=== PATIENT | female | born 1960 | race Caucasian/White ===

== ENCOUNTER → 2016-03-30 16:05 | Outpatient (CLI) | payer OTHER ==
[2015-01-26 11:36] VITALS: BMI 35.8
[~2016-03-30 16:05] MED LIST: ADDERALL 10 MG10 MG PO; ADDERALL 15 MG15 MG PO; CYCLOBENZAPRINE10 MG PO; DEMEROL50 MG PO; FLEXERIL10 MG PO; LEVOTHYROXINE175 MCG PO; OXYCODONE HCL10 MG PO; OXYCODONE HCL5 MG PO; PERCOCET 10/3251 TA1 PO; PRILOSEC20 MG PO; SYNTHROID150 MCG PO; TRILEPTAL300 MG PO; ULTRAM50 MG PO; VIIBRYD PO
== END | disposition home or self-care (01) ==
LOC: D.MAMMO 03-29 11:00
DX: N63 Unspecified lump in breast (principal)

== ENCOUNTER 2016-04-23 15:03 | Emergency (ER) | payer OTHER ==
[2015-01-26 11:36] VITALS: BMI 35.8
[~2016-04-23 15:03] MED LIST changes: -OXYCODONE HCL10 MG PO; -OXYCODONE HCL5 MG PO; -PERCOCET 10/3251 TA1 PO
[2016-04-29] MEDS ORDERED: PERCOCET 10/3251 TA1 PO (10:45)
== END 2016-04-23 17:06 | disposition home or self-care (01) ==
LOC: D.ER 15:03
DX: S42.202A Unspecified fracture of upper end of left humerus, initial encounter for closed fracture (principal); V80.010A Animal-rider injured by fall from or being thrown from horse in noncollision accident, initial encounter; Y93.52 Activity, horseback riding; Y92.9 Unspecified place or not applicable

== ENCOUNTER 2016-05-02 05:34 | Inpatient (IN) | payer OTHER ==
[2016-04-29 11:57] LABS: APTT 27.3 SECONDS (22.8-39.4); CALC OSMOLALITY 264 mosm/kg (275-300); CALCIUM 8.8 mg/dL (8.5-10.1); CARBON DIOXIDE 34.8 mmol/L (21.0-32.0); CHLORIDE - SERUM 92 mmol/L (98-107); CREATININE - SERUM 0.7 mg/dL (0.6-1.3); GLUCOSE 97 mg/dL (74-106); INR 0.94 (0.85-1.17); POTASSIUM - SERUM 3.6 mmol/L (3.5-5.1); PROTIME 12.4 SECONDS (11.6-15.0); SODIUM 133 mmol/L (136-145); UREA NITROGEN 11 mg/dL (7-18); eGFR NON AFRICAN AMERICAN > 90 mL/min (90-120)
[2016-04-29 12:07] LABS: BASOPHILS 0.5 % (0.0-2.0); EOSINOPHILS 2.3 % (0-7); HEMATOCRIT 32.6 % (36.0-48.0); HEMOGLOBIN 10.8 g/dL (12-16); IMMATURE GRANULOCYTES 0.6 % (0-5); LYMPHOCYTES 19.9 % (15-50); MCHC 33.1 g/dL (31.0-37.0); MCV 90.6 fL (80.0-100.0); MEAN PLATELET VOLUME 9.2 fL (7.4-10.4); NEUTROPHILS 67.7 % (40-80); RDW 12.6 % (11.5-14.5); WBC 8.6 10x3/uL (4.8-10.8)
[2016-04-29 12:17] LABS: PLATELET COUNT 338 10x3/uL (130-400)
[2016-04-29 12:21] LABS: APPEARANCE CLEAR (CLEAR); BILIRUBIN NEGATIVE (NEGATIVE); COLOR YELLOW (YELLOW); GLUCOSE NEGATIVE (NEGATIVE); KETONE NEGATIVE (NEGATIVE); LEUKOCYTE ESTERASE TRACE (NEGATIVE); NITRITE NEGATIVE (NEGATIVE); PROTEIN NEGATIVE (NEGATIVE); UROBILINOGEN NORMAL (NORMAL); WHITE CELLS - URINE 0-5 /hpf (0-5)
[2016-04-29 12:22] LABS: BACTERIA FEW /hpf (NONE SEEN); EPITHELIAL CELLS 0-5 /hpf (0-5); MUCUS <1+ /lpf (NONE SEEN)
[2016-05-02] VITALS (9 sets, daily range): BP systolic 126–158; BP diastolic 73–93; BMI 37.8
[~2016-05-02] VITALS: Ht 162.6 cm; Wt 100.0 kg
[~2016-05-02 05:34] MED LIST changes: +PERCOCET 10/3251 TA1 PO
--- NOTE | 2016-05-02 13:09 | NUR ---
1306 DR PEREZ NOTIFIED OF PT.'S UA RESULTS WITH NEGATIVE FOR NITRATE BUT TRACE/LEUKOCYTES, FEW/BACTERIA, 1+/MUCUS. DR. PEREZ STATES IT IS OKAY. NO ORDERS RECEIVED. Martha LLANES R.N.
--- NOTE | 2016-05-02 14:09 | NUR ---
1330 PT STATES NO CHNAGES IN HEALTH ASSESSMENT SINCE INTERVIEWED 05/27/16. Martha LLANES R.N.
--- NOTE | 2016-05-02 18:40 | NUR ---
LEFT SHOULDER AND ARM WASHED WITH HIBICLENS AND ALCOHOL PRIOR TO CHLORPREP PER DN
--- NOTE | 2016-05-02 19:20 | NUR ---
RECIEVED SHIFT REPORT. PT IS LYING IN BED. ALERT AND ORIENTED AND ABLE TO VERBALIZE NEEDS. IV TO BOTH A/C'S PATENT AND SALINE LOC AT THIS TIME. PT IS AMBULATORY BUT WAS INSTRUCTED TO CALL FOR ANY ASSISTANCE NEEDED. PT STATES PAIN IS 8/10. NO NEEDS ARE VERBALIZED AT THIS TIME. WILL CONTINUE TO MONITOR. SIDE RAILS ARE UP X 2. BED IS IN LOWEST POSITION. CALL LIGHT IS WITHIN REACH.
--- NOTE | 2016-05-02 19:45 | NUR ---
RECIEVED PT TO FLOOR FROM RECOVERY ROOM. VSS. PT IS ALERT AND ORIENTED AND ABLE TO VERBALIZE NEEDS. O2 @ 2 PER NASAL CANNULA. DRESSING TO LEFT SHOULDER C/D/I AND IMMOBILIZER IN PLACE. BLOCK IN PLACE WITH DRESSING SITE C/D/I. PT PT DENIES ANY PAIN AT THIS TIME. PT IS ORIENTED TO ROOM AND USE OF CALL LIGHT AT THIS TIME. NO NEEDS ARE VERBALIZED AT THIS TIME. WILL CONTINUE TO MONITOR. SIDE RAILS ARE UP X 2. BED IS IN LOWEST POSITION. CALL LIGHT IS WITHIN REACH.
--- NOTE | 2016-05-02 21:04 | NUR ---
ADMIT ASSESSMENT COMPLETED. FLUIDS HUNG PER ORDER. PT REFUSES SCHEDULED OXYXONTIN AT THIS TIME. NO NEEDS ARE VOICED. WILL MONITOR. AT BEDSIDE. SIDE RAILS X 2. BED LOW. CALL LIGHT IN REACH.
[2016-05-03 00:30] VITALS: BP 139/80
[2016-05-03 01:14] VITALS: BP 150/89; Ht 162.6 cm; Wt 100.0 kg
[2016-05-03 01:30] VITALS: BP 127/80
[2016-05-03 04:00] VITALS: BP 135/62
--- NOTE | 2016-05-03 08:02 | NUR ---
PATIENT AWAKE, ALERT/ORIENT X4. RIGHT HAND PHERIAL LINE WITH 1.2 NORMAL SALINE RUNNING. SCDS' ON BILATERAL. CALL LIGHT WITHIN REACH. VOICES NO NEEDS
[2016-05-03 08:15] VITALS: BP 132/75
[2016-05-03] MEDS ORDERED: OXYCODONE HCL5 MG PO (08:19)
[2016-05-03] MEDS ORDERED: OXYCODONE HCL10 MG PO (08:24)
[2016-05-03 08:49] LABS: HEMOGLOBIN 9.6 g/dL (12-16); MCH 29.8 pg (26.0-34.0); MCHC 33.1 g/dL (31.0-37.0); MCV 90.1 fL (80.0-100.0); MEAN PLATELET VOLUME 8.7 fL (7.4-10.4); RBC 3.22 10x6/uL (4.00-5.40); RDW 12.9 % (11.5-14.5)
[2016-05-03 08:53] LABS: CALC OSMOLALITY 271 mosm/kg (275-300); CALCIUM 8.8 mg/dL (8.5-10.1); CARBON DIOXIDE 31.8 mmol/L (21.0-32.0); CHLORIDE - SERUM 101 mmol/L (98-107); CREATININE - SERUM 0.6 mg/dL (0.6-1.3); GLUCOSE 104 mg/dL (74-106); POTASSIUM - SERUM 3.9 mmol/L (3.5-5.1); SODIUM 137 mmol/L (136-145); UREA NITROGEN 7 mg/dL (7-18); eGFR NON AFRICAN AMERICAN > 90 mL/min (90-120)
--- NOTE | 2016-05-03 10:41 | NUR ---
DR PEREZ INTO SEE PATIENT. NEW ORDERS RECEIVED. PATIENT TO BE DISCHARGED TODAY
--- NOTE | 2016-05-03 11:13 | NUR ---
THIS NURSE WENT INTO TALK WITH PATIENT. STATED THAT ANETHESIOLOGIST WOULD BE UP TO PULL BLOCK. PATIENT STATED THAT SHE DOES NOT FEEL READY FOR BLOCK TO BE REMOVED. SHE HAS BEEN ON OXYCODONE 10MG AT HOME ALREADY AND DOESN'T FEEL SHE CAN CONTROL HER PAIN AT HOME. THIS NURS WAITING FOR ANETHESIA TO COME TALK WITH PATIENT
--- NOTE | 2016-05-03 11:25 | NUR ---
IMMOBILIZER SLING TO LEFT ARM. BLOCK PATENT AND PRESENT. PAIN 6/10 IN LEFT SHOULDER. SCD'S ON AND IN WORKING ORDER. ALERT AND ORIENTED X4 WITH RESPIRATIONS EVEN AND NON LABORED. DENIES NEEDS AT PRESENT TIME. CALL LIGHT IN REACH, WILL CONTINUE WITH PLAN OF CARE.
[2016-05-03 12:30] VITALS: BP 109/62
--- NOTE | 2016-05-03 13:11 | NUR ---
ANETHESIA HERE TO D/C BLOCK. PERIPHERAL LINE REMOVED FROM RIGHT HAND.
--- NOTE | 2016-05-03 13:20 | NUR ---
PATIENT DISCHARGE INSTRUCTION GIVEN TO PATIENT AND . MEDICATIONS PATIENT DOES NOT HAVE CALLED INTO PATIENTS PHARMACY. SCRIPS GIVEN TO PATIENT
--- NOTE | 2016-05-03 13:20 | NUR ---
DR. SIMMONS INTO SEE PATIENT.
--- NOTE | 2016-05-03 13:34 | NUR ---
IN WITH PATIENT. PATIENT TAKEN OUT TO CAR IN WHEELCHAIR.
--- NOTE | 2016-05-07 10:48 | OP ---
PATIENT NAME: ROMAIN DOWLEL MEDICAL RECORD: [id number] :58 LOCATION:[facility] ADMISSION DATE:05/02/16 SURGEON: OSIRIS PEREZ MD DATE OF OPERATION: 05/02/2016 Orthopedic Surgery Operative Note PREOPERATIVE DIAGNOSIS: A 3-part proximal humerus fracture. POSTOPERATIVE DIAGNOSIS: A 3-part proximal humerus fracture plus bony Bankart deficit. PROCEDURE: Left total shoulder arthroplasty. SURGEON: Osiris Perez MD ANESTHESIA: General. INTRAOPERATIVE COMPLICATIONS: None. SUMMARY OF PATHOLOGIC FINDINGS: The patient's tuberosities were split and the humeral head was in the inferior and posterior recess. The glenoid itself had a small bony Bankart deficit with deformation of the glenoid surface. Decision was made to proceed with the total shoulder arthroplasty given the above findings. IMPLANTS USED: Tornier fracture stem size 6.5, size 44 glenoid and a 46 humeral head. OPERATIVE SUMMARY IN DETAIL: After obtaining the appropriate preoperative orthopedic surgery consent as well as anesthetic consultation, evaluation and clearance, the patient was brought to operating room and placed on operating table in supine position. After adequate general laryngeal mask anesthesia was administered, she was placed in beach chair position. All pressure points were well padded. She was held firmly to the operating room table using the vacuum pack suction system. Left upper extremity and shoulder were then prepped and draped in a routine sterile fashion. The arm was held in Trimano arm holding device. Deltopectoral incision was taken down past the cephalic vein, which was protected throughout the case. The conjoined tendon was retracted gently medially. At this point, the fracture was identified. The tuberosities were controlled with #2 Ethibond and the humeral head was removed from its position. Multiple bone fragments were washed out and attention was turned to the glenoid. Circumferential labrectomy was performed. The patient's biceps tendon was already torn at the time of this dissection. The labrectomy was followed by reaming for the size 44 super pegged glenoid. After copious irrigation, the super pegged glenoid was cemented into place. All excess cement was removed. After this was allowed to harden, attention was turned to the humerus. The humerus was amenable only to the size 6.5 Tornier fracture stem. After trials were undertaken, the humeral head was used for graft. It was packed back of the stem. The cement restrictor was put into place. Cement was mixed on the back field. The cement was placed into the diaphyseal canal. After the cement was allowed to harden with the humeral head at the appropriate height and 30 degrees of retroversion, the tuberosities were brought around and it seemed that they would fit just fine. The remainder of the graft from the humeral head was packed in around the metaphyseal portion of the stem and then the tuberosities OPERATIVE REPORT [id number] ROMAIN DOWELL were reapproximated with #2 FiberTape in a transosseous fashion to the humerus itself, side to side, and then to the humerus itself to assure the lateral stability. The wound was copiously irrigated and closed with #1 Vicryl. This was followed by skin antonino. Sterile dressings were applied. The patient was awakened, placed in an abduction immobilizer splint. She was taken to the recovery room in stable condition. All final needle and sponge counts were correct. TRANSINT:[id number] Voice Confirmation ID: [id number] DOCUMENT ID: [id number] ANA WEINSTEIN, OSIRIS PAINTER at 1048 CC: [id number] DICTATION DATE: 05/02/161906 AIRPORT OPERATIONS OFFICER: 05/02/16 2257 DIS IN 05/03/16 [place] [id number] [place] [address]
== END 2016-05-03 13:47 | disposition home or self-care (01) | DRG 483 ==
LOC: D.OPS 05:34 → D.PAN 15:00 → D.MS 19:16 → D.OPS 19:17 → D.MS 05-03 13:47
PROVIDERS: ADMIT Orthopaedic Surgery
PROC: 0RRK0JZ Replacement of Left Shoulder Joint with Synthetic Substitute, Open Approach (ICD-10-PCS; principal; 2016-05-02 13:50)
DX: S42.232A 3-part fracture of surgical neck of left humerus, initial encounter for closed fracture (principal); X58.XXXA Exposure to other specified factors, initial encounter; K21.9 Gastro-esophageal reflux disease without esophagitis; G47.30 Sleep apnea, unspecified; E66.9 Obesity, unspecified; Z68.37 Body mass index [BMI] 37.0-37.9, adult

== ENCOUNTER → 2016-07-04 10:54 | Outpatient (CLI) | payer OTHER ==
[~2016-07-04 10:54] MED LIST changes: +OXYCODONE HCL10 MG PO; +OXYCODONE HCL5 MG PO
== END | disposition home or self-care (01) ==
LOC: D.US 10:54
DX: N63 Unspecified lump in breast (principal)

== ENCOUNTER → 2017-02-02 12:23 | Outpatient (CLI) | payer OTHER ==
[2016-05-03 01:14] VITALS: BMI 37.8
== END | disposition home or self-care (01) ==
LOC: D.MAMMO 10:30
DX: Z12.31 Encounter for screening mammogram for malignant neoplasm of breast (principal)

== ENCOUNTER 2017-09-08 12:11 | Inpatient (IN) | payer OTHER ==
[~2017-09-08] VITALS: Ht 162.6 cm; Wt 109.1 kg
--- NOTE | ~2017-09-08 | OP ---
PATIENT NAME: ROMAIN DOWELL MEDICAL RECORD: [id number] :58 LOCATION:[facility] ADMISSION DATE:09/08/17 SURGEON: OSIRIS PEREZ MD DATE OF OPERATION: 09/09/2017 PREOPERATIVE DIAGNOSIS: Infected left total shoulder arthroplasty. POSTOPERATIVE DIAGNOSIS: Infected left total shoulder arthroplasty. PROCEDURE: 1. Resection of the infected left total shoulder arthroplasty. 2. Placement of antibiotic bone cement. SURGEON: Osiris Perez MD ANESTHESIA: General. INTRAOPERATIVE COMPLICATIONS: None. SUMMARY OF PATHOLOGIC FINDINGS: Upon incising the capsule, the patient had substantial cloudy material consistent with preoperative diagnosis. INDICATION: Ms. Dowell is a 56-year-old female who underwent total shoulder arthroplasty after severe 4-part intra-articular fracture dislocation of her left shoulder. This index procedure was approximately 19 months ago. All was well until approximately 2 weeks ago when she began to have increasing in pain, no history of infection with any other body site was noted. She was sent for CT arthrogram. At the time of CT arthrogram, she was found to have concerning for that was sent by the radiologist at an outside facility. Subsequently, that grew Staphylococcus aureus. She was admitted for pain relief and surgical intervention with IV antibiotics to follow. OPERATIVE SUMMARY IN DETAIL: After obtaining the appropriate preoperative orthopedic surgery consent as well as anesthetic consultation, evaluation and clearance, the patient was brought to the operating room on the operating table in supine position. After general laryngeal mask administered, the patient was placed in the beach chair position. All pressure points were well padded. She was held firmly to the operating room using the vacuum pack suction system. Left upper extremity and shoulder were then prepped and draped in routine sterile fashion. Deltopectoral incision was created over the previous incision, taken down the level of the deltopectoral interval. Cephalic vein was identified and protected to the residual of the case. Dissection was then carried down further, meticulous dissection of the deltoid off the rotator cuff was followed by meticulous dissection of the conjoined tendon. There was substantial amount of scar tissue. Subscapularis was then incised and the cultures were taken from the intra-articular aspect. After substantial dissection, the shoulder was then gently dislocated into the incision and it was removed rather easily likely further indicating infection. Having completed this, the glenoid likewise was removed further easily. All cement was removed. Wound was copiously irrigated on multiple occasions, curettage and rongeurs as well as scalpel were utilized to remove any nonviable appearing tissue. The cement spacer was made on the back field with bone cement laden with a gram of vancomycin. After this was allowed to harden, it was formed into a ball. This was then placed in the glenohumeral area as a spacer for later operative intervention. The wound was again irrigated and closed with #1 Vicryl, 2-0 OPERATIVE REPORT [id number] ROMAIN DOWELL Vicryl, and skin antonino. Sterile dressings were applied. The patient was awakened and was taken to recovery room in stable condition. All final needle and sponge counts were correct. TRANSINT:[id number] Voice Confirmation ID: [id number] DOCUMENT ID: [id number] ANA WEINSTEIN, OSIRIS PAINTER at 1123 CC: [id number] DICTATION DATE: 09/09/17 1025 E/M ENGINEER: 09/09/17 1048 ADM IN [facility] [address] [place] [address]
[2017-09-08] MEDS ORDERED: DILAUDID2 MG PO (13:29)
[2017-09-08] MEDS ORDERED: PREMARIN45 GM VG (13:31)
[2017-09-08 13:43] VITALS: BP 147/71; BMI 41.3
[2017-09-08 14:02] LABS: BASOPHILS 0.2 % (0-2); HEMATOCRIT 28.9 % (36.0-48.0); HEMOGLOBIN 9.7 g/dL (12-16); IMMATURE GRANULOCYTES 0.3 % (0-5); LYMPHOCYTES 14.9 % (15-50); MCH 28.7 pg (26.0-34.0); MCHC 33.6 g/dL (31.0-37.0); MCV 85.5 fL (80.0-100.0); MEAN PLATELET VOLUME 8.6 fL (7.4-10.4); MONOCYTES 10.5 % (2-11); NEUTROPHILS 73.1 % (40-80); RBC 3.38 10x6/uL (4.00-5.40); RDW 12.7 % (11.5-14.5); WBC 8.7 10x3/uL (4.8-10.8)
[2017-09-08 14:06] LABS: PLATELET COUNT 402 10x3/uL (130-400)
[2017-09-08 14:18] LABS: C-REACTIVE PROTEIN 8.7 mg/dL (0.0-0.9); CALC OSMOLALITY 267 mosm/kg (275-300); CALCIUM 8.7 mg/dL (8.5-10.1); CARBON DIOXIDE 31.7 mmol/L (21.0-32.0); CHLORIDE - SERUM 97 mmol/L (98-107); CREATININE - SERUM 0.8 mg/dL (0.6-1.3); GLUCOSE 124 mg/dL (74-106); SODIUM 134 mmol/L (136-145); UREA NITROGEN 10 mg/dL (7-18); eGFR NON AFRICAN AMERICAN 78 mL/min (90-120)
[2017-09-08 15:11] LABS: ERYTHROCYTE SEDIMENTATION RATE 115 mm/hr (0-30)
[2017-09-08 16:46] VITALS: BP 143/73
[2017-09-08 20:00] VITALS: BP 149/72
[2017-09-09] VITALS: BP 137/70
[2017-09-09 04:00] VITALS: BP 143/68
[2017-09-09 06:37] LABS: HEMATOCRIT 29.3 % (36.0-48.0); HEMOGLOBIN 9.7 g/dL (12-16); MCH 28.5 pg (26.0-34.0); MCHC 33.1 g/dL (31.0-37.0); MCV 86.2 fL (80.0-100.0); MEAN PLATELET VOLUME 8.6 fL (7.4-10.4); RBC 3.4 10x6/uL (4.00-5.40); RDW 12.9 % (11.5-14.5); WBC 6.7 10x3/uL (4.8-10.8)
[2017-09-09 06:53] LABS: CALC OSMOLALITY 269 mosm/kg (275-300); CALCIUM 8.6 mg/dL (8.5-10.1); CARBON DIOXIDE 30.6 mmol/L (21.0-32.0); CHLORIDE - SERUM 99 mmol/L (98-107); CREATININE - SERUM 0.8 mg/dL (0.6-1.3); GLUCOSE 96 mg/dL (74-106); POTASSIUM - SERUM 3.9 mmol/L (3.5-5.1); SODIUM 136 mmol/L (136-145); eGFR NON AFRICAN AMERICAN 78 mL/min (90-120)
[2017-09-09 07:05] LABS: UREA NITROGEN 6 mg/dL (7-18)
[2017-09-09 11:12] VITALS: BP 150/79
[2017-09-09 20:00] VITALS: BP 143/57
[2017-09-10] VITALS: BP 155/71
[2017-09-10 02:16] LABS: BASOPHILS 0.2 % (0-2); EOSINOPHILS 0.2 % (0-7); HEMATOCRIT 31.7 % (36.0-48.0); HEMOGLOBIN 10.5 g/dL (12-16); IMMATURE GRANULOCYTES 0.2 % (0-5); LYMPHOCYTES 9.8 % (15-50); MCH 28.6 pg (26.0-34.0); MCHC 33.1 g/dL (31.0-37.0); MCV 86.4 fL (80.0-100.0); MEAN PLATELET VOLUME 8.9 fL (7.4-10.4); MONOCYTES 9.9 % (2-11); NEUTROPHILS 79.7 % (40-80); PLATELET COUNT 463 10x3/uL (130-400); RBC 3.67 10x6/uL (4.00-5.40); RDW 12.9 % (11.5-14.5)
[2017-09-10 02:17] LABS: WBC 12.5 10x3/uL (4.8-10.8)
[2017-09-10 02:21] LABS: ALBUMIN 2.3 g/dL (3.4-5.0); ANION GAP 9.4 mmol/L (8-16); BILIRUBIN - TOTAL 0.43 mg/dL (0.2-1.3); C-REACTIVE PROTEIN 12.1 mg/dL (0.0-0.9); CALCIUM 8.4 mg/dL (8.5-10.1); CARBON DIOXIDE 29.6 mmol/L (21.0-32.0); CREATININE - SERUM 0.9 mg/dL (0.6-1.3); PROTEIN - SERUM 7.4 g/dL (6.4-8.2)
[2017-09-10 03:10] LABS: ERYTHROCYTE SEDIMENTATION RATE 68 mm/hr (0-30)
[2017-09-10 04:00] VITALS: BP 135/71
[2017-09-10 08:43] VITALS: BP 130/52
[2017-09-10 11:38] VITALS: BP 149/75
[2017-09-10 15:42] VITALS: BP 138/76
[2017-09-10 20:13] VITALS: BP 122/67
[2017-09-11] VITALS: BP 121/81
[2017-09-11 04:00] VITALS: BP 110/69
[2017-09-11 05:22] LABS: HEMATOCRIT 26.5 % (36.0-48.0); HEMOGLOBIN 8.7 g/dL (12-16); MCH 28.4 pg (26.0-34.0); MCHC 32.8 g/dL (31.0-37.0); MCV 86.6 fL (80.0-100.0); MEAN PLATELET VOLUME 8.6 fL (7.4-10.4); RBC 3.06 10x6/uL (4.00-5.40); RDW 13.2 % (11.5-14.5); WBC 9.8 10x3/uL (4.8-10.8)
[2017-09-11 05:42] LABS: CALC OSMOLALITY 267 mosm/kg (275-300); CALCIUM 8.4 mg/dL (8.5-10.1); CARBON DIOXIDE 33.4 mmol/L (21.0-32.0); CHLORIDE - SERUM 98 mmol/L (98-107); CREATININE - SERUM 0.8 mg/dL (0.6-1.3); GLUCOSE 119 mg/dL (74-106); POTASSIUM - SERUM 4.2 mmol/L (3.5-5.1); SODIUM 135 mmol/L (136-145); UREA NITROGEN 5 mg/dL (7-18); eGFR NON AFRICAN AMERICAN 78 mL/min (90-120)
[2017-09-11 08:25] VITALS: BP 126/64
[2017-09-11 11:49] VITALS: BP 118/64
[2017-09-11 13:07] VITALS: Ht 162.6 cm; Wt 109.1 kg
[2017-09-11 16:43] VITALS: BP 104/56
[2017-09-11 20:00] VITALS: BP 106/61
[2017-09-12 00:08] VITALS: BP 118/67
[2017-09-12 04:00] VITALS: BP 138/78
[2017-09-12 08:11] VITALS: BP 123/79
[2017-09-12] MEDS ORDERED: DILAUDID2 MG PO (08:44)
[2017-09-12 13:04] VITALS: BP 124/77
== END 2017-09-12 14:55 | disposition home health service (06) | DRG 496 ==
LOC: D.MS 12:11
PROVIDERS: Orthopaedic Surgery
PROC: 0RHK08Z Insertion of Spacer into Left Shoulder Joint, Open Approach (ICD-10-PCS; 2017-09-09)
PROC: 0RPK0JZ Removal of Synthetic Substitute from Left Shoulder Joint, Open Approach (ICD-10-PCS; principal; 2017-09-09 08:00)
PROC: 02HV33Z Insertion of Infusion Device into Superior Vena Cava, Percutaneous Approach (ICD-10-PCS; 2017-09-11)
PROC: B548ZZA Ultrasonography of Superior Vena Cava, Guidance (ICD-10-PCS; 2017-09-11)
DX: T84.59XA Infection and inflammatory reaction due to other internal joint prosthesis, initial encounter (principal); Z68.41 Body mass index [BMI] 40.0-44.9, adult; E03.9 Hypothyroidism, unspecified; M79.7 Fibromyalgia; E66.9 Obesity, unspecified

== ENCOUNTER → 2017-09-18 14:00 | Outpatient (CLI) | payer OTHER ==
[2017-09-11 13:07] VITALS: BMI 41.3
[~2017-09-18 14:00] MED LIST changes: +DILAUDID2 MG PO; +PREMARIN45 GM VG
[2017-09-18 14:47] LABS: BASOPHILS 0.5 % (0-2); EOSINOPHILS 3.2 % (0-7); HEMATOCRIT 28.9 % (36.0-48.0); HEMOGLOBIN 9.1 g/dL (12-16); IMMATURE GRANULOCYTES 0.9 % (0-5); LYMPHOCYTES 25.5 % (15-50); MCH 27.7 pg (26.0-34.0); MCHC 31.5 g/dL (31.0-37.0); MCV 88.1 fL (80.0-100.0); MONOCYTES 8.3 % (2-11); NEUTROPHILS 61.6 % (40-80); PLATELET COUNT 386 10x3/uL (130-400); RBC 3.28 10x6/uL (4.00-5.40); RDW 13.3 % (11.5-14.5); WBC 5.9 10x3/uL (4.8-10.8)
[2017-09-18 15:04] LABS: C-REACTIVE PROTEIN 2.9 mg/dL (0.0-0.9); CREATININE - SERUM 0.7 mg/dL (0.6-1.3)
[2017-09-18 18:16] LABS: ERYTHROCYTE SEDIMENTATION RATE 65 mm/hr (0-30)
== END | disposition home or self-care (01) ==
LOC: D.LABREF 14:00
PROVIDERS: Orthopaedic Surgery
DX: M00.811 Arthritis due to other bacteria, right shoulder (principal)

== ENCOUNTER → 2017-09-25 14:38 | Outpatient (CLI) | payer OTHER ==
[2017-09-11 13:07] VITALS: BMI 41.3
[~2017-09-25 14:38] MED LIST changes: +DILAUDID4 MG PO; +LUNESTA2 M1 PO
[2017-09-25 14:59] LABS: BASOPHILS 0.7 % (0-2); EOSINOPHILS 1.3 % (0-7); HEMATOCRIT 31.1 % (36.0-48.0); IMMATURE GRANULOCYTES 0.2 % (0-5); LYMPHOCYTES 23.6 % (15-50); MCH 27.9 pg (26.0-34.0); MCHC 32.2 g/dL (31.0-37.0); MCV 86.6 fL (80.0-100.0); MEAN PLATELET VOLUME 9.3 fL (7.4-10.4); MONOCYTES 6.8 % (2-11); NEUTROPHILS 67.4 % (40-80); RBC 3.59 10x6/uL (4.00-5.40); RDW 13.1 % (11.5-14.5)
[2017-09-25 15:04] LABS: PLATELET COUNT 294 10x3/uL (130-400)
[2017-09-25 15:21] LABS: C-REACTIVE PROTEIN 1.2 mg/dL (0.0-0.9); CREATININE - SERUM 0.7 mg/dL (0.6-1.3)
[2017-09-25 16:02] LABS: ERYTHROCYTE SEDIMENTATION RATE 65 mm/hr (0-30)
== END | disposition home or self-care (01) ==
LOC: D.LAB 14:38
PROVIDERS: Orthopaedic Surgery
DX: M00.811 Arthritis due to other bacteria, right shoulder (principal)

== ENCOUNTER → 2017-10-02 17:36 | Outpatient (CLI) | payer OTHER ==
[2017-09-11 13:07] VITALS: BMI 41.3
[2017-10-02 18:22] LABS: BASOPHILS 0.5 % (0-2); HEMATOCRIT 33.4 % (36.0-48.0); HEMOGLOBIN 10.8 g/dL (12-16); IMMATURE GRANULOCYTES 0.2 % (0-5); LYMPHOCYTES 26.1 % (15-50); MCH 27.9 pg (26.0-34.0); MCHC 32.3 g/dL (31.0-37.0); MCV 86.3 fL (80.0-100.0); MEAN PLATELET VOLUME 9.8 fL (7.4-10.4); MONOCYTES 8.7 % (2-11); NEUTROPHILS 62.5 % (40-80); PLATELET COUNT 289 10x3/uL (130-400); RBC 3.87 10x6/uL (4.00-5.40); WBC 6.6 10x3/uL (4.8-10.8)
[2017-10-02 19:08] LABS: C-REACTIVE PROTEIN 1.2 mg/dL (0.0-0.9); CREATININE - SERUM 0.8 mg/dL (0.6-1.3)
[2017-10-02 19:40] LABS: ERYTHROCYTE SEDIMENTATION RATE 70 mm/hr (0-30)
== END | disposition home or self-care (01) ==
LOC: D.LABREF 17:36
PROVIDERS: Orthopaedic Surgery
DX: M00.811 Arthritis due to other bacteria, right shoulder (principal); T84.59XA Infection and inflammatory reaction due to other internal joint prosthesis, initial encounter

== ENCOUNTER → 2017-10-09 18:46 | Outpatient (CLI) | payer OTHER ==
[2017-09-11 13:07] VITALS: BMI 41.3
[2017-10-09 20:10] LABS: HEMATOCRIT 35.5 % (36.0-48.0); HEMOGLOBIN 11.5 g/dL (12-16); MCH 27.8 pg (26.0-34.0); MCHC 32.4 g/dL (31.0-37.0); PLATELET COUNT 266 10x3/uL (130-400); RBC 4.13 10x6/uL (4.00-5.40); WBC 5.1 10x3/uL (4.8-10.8)
[2017-10-09 20:28] LABS: C-REACTIVE PROTEIN 0.7 mg/dL (0.0-0.9); CREATININE - SERUM 0.8 mg/dL (0.6-1.3)
[2017-10-09 21:10] LABS: ERYTHROCYTE SEDIMENTATION RATE 36 mm/hr (0-30)
[2017-10-09 21:28] LABS: EOSINOPHILS 4 % (0-7); LYMPHOCYTES 32 % (15-50); MONOCYTES 6 % (2-11); NEUTROPHILS 58 % (40-80)
[2017-10-09 21:29] LABS: PLATELET ESTIMATE NORMAL
== END | disposition home or self-care (01) ==
LOC: D.LABREF 18:46
PROVIDERS: Orthopaedic Surgery
DX: M00.811 Arthritis due to other bacteria, right shoulder (principal); T84.59XA Infection and inflammatory reaction due to other internal joint prosthesis, initial encounter

== ENCOUNTER 2017-11-06 05:20 | Inpatient (IN) | payer OTHER ==
[2017-11-02 14:47] LABS: HEMATOCRIT 40.9 % (36.0-48.0); HEMOGLOBIN 13.8 g/dL (12-16); MCH 28.4 pg (26.0-34.0); MCHC 33.7 g/dL (31.0-37.0); MCV 84.2 fL (80.0-100.0); MEAN PLATELET VOLUME 9.5 fL (7.4-10.4); RBC 4.86 10x6/uL (4.00-5.40)
[2017-11-02 15:03] LABS: ALBUMIN 3.5 g/dL (3.4-5.0); ANION GAP 9.8 mmol/L (8-16); BILIRUBIN - TOTAL 0.21 mg/dL (0.2-1.3); CALCIUM 8.9 mg/dL (8.5-10.1); CARBON DIOXIDE 32.4 mmol/L (21.0-32.0); CREATININE - SERUM 0.9 mg/dL (0.6-1.3); POTASSIUM - SERUM 4.2 mmol/L (3.5-5.1); PROTEIN - SERUM 8.2 g/dL (6.4-8.2)
[~2017-11-06] VITALS: Ht 162.6 cm; Wt 98.2 kg
--- NOTE | ~2017-11-06 | OP ---
PATIENT NAME: ROMAIN DOWELL MEDICAL RECORD: [id number] :58 LOCATION:D[facility] ADMISSION DATE:11/06/17 SURGEON: OSIRIS PEREZ MD DATE OF OPERATION: 11/06/2017 PREOPERATIVE DIAGNOSIS: Prior infected left total shoulder. POSTOPERATIVE DIAGNOSIS: Prior infected left total shoulder. PROCEDURES: 1. Revision, left total shoulder arthroplasty - reverse. 2. Removal of previously placed antibiotic cement spacer. SURGEON: Osiris Perez MD ANESTHESIA: General. INTRAOPERATIVE COMPLICATIONS: None. SUMMARY OF PATHOLOGIC FINDINGS: The patient had paucity of any rotator cuff left after she had had a hemiarthroplasty/total shoulder arthroplasty for fracture dislocation of the shoulder. She presented a year later with infection that was treated successfully, presents for reimplantation. IMPLANTS USED: Tornier reverse total shoulder arthroplasty, size 2 Flex long cemented stem, 25-mm baseplate, 36+4 glenosphere, and a size 6 polyethylene insert. OPERATIVE SUMMARY IN DETAIL: After obtaining the appropriate preoperative orthopaedic surgery consent as well as anesthetic consultation, evaluation, and clearance, the patient was brought to the operating room and placed on the operating table in the supine position. After adequate general endotracheal anesthesia was administered, the patient was placed in beachchair position. All pressure points were well padded. She was held firmly to the operating table using the vacuum pack suction system. The left upper extremity was then prepped and draped in routine sterile fashion. The arm was held in the Trimano arm holding device. Previously utilized incision was taken down for deltopectoral approach. Branches of the small cephalic vein were encountered and they were ligated with medium Hemoclips. Deltopectoral interval was developed through all the scar tissue and eventually the deltoid was taken off the proximal aspect of the humerus and mobilized as was the conjoined tendon medially. Arthrotomy was performed and the cement spacer was identified and removed. After removal of the cement spacer, substantial amounts of scar tissue was removed anteriorly and posteriorly as well as inferior recess. The patient did have excessive bleeding during the case with total of 500 cc of blood loss. All bleeders were coagulated as they were encountered. The glenoid was first approached and cleaned of all the scar tissue, and before making final determination of reverse versus primary, the humerus was approached. Proximal humerus had substantial amount of greater tuberosity bone loss with no good conductivity of the rotator cuff; therefore, the reverse was scheduled for. Any remaining cement was further removed from the proximal humerus. Serial and sequential reaming and broaching were done. I opted for a cemented stem rather than a stem because so much diaphyseal bone loss was noted. After the trial was put into place, it was then removed and attention was returned to the glenoid. The centralizing pin was placed in the glenoid and serial and sequential reaming were done along with OPERATIVE REPORT [id number] ROMAIN DOWELL peripheral reaming for a size #15 baseplate. The size #15 baseplate was put in with inferior angulation of approximately 15 degrees. Long stem post was used and good capture was achieved with 3 of the 4 screws around the periphery. At this point, the +4 glenosphere was then tamped into place with good locking on the Shah taper. Central screw was then deployed. Having completed this, attention was returned to the proximal humerus. Trial was put in place and taken through range of motion with the above-mentioned implants and thought to be stable. The trial was removed. Copious irrigation was followed by insertion of the cement plug. The size 2 long Flex stem was cemented into place with the metaphyseal component and polyethylene in place. This was tamped into place and held in place where the cement was allowed to dry. Before such, all excess cement was removed. When the cement was allowed to dry, the shoulder was relocated and taken through range of motion. No liftoff was seen anteriorly, posteriorly, or superiorly. The shoulder was very stable in all planes. Copious irrigation was then followed by closure of the shoulder capsule as well as the deltopectoral interval. Lastly, #1 Vicryl was then followed by skin antonino for final closure. Having completed this, sterile dressings were applied. The patient was awakened, extubated, and taken to recovery in stable condition. All final needle and sponge counts were correct. TRANSINT:[id number] Voice Confirmation ID: [id number] DOCUMENT ID: [id number] ANA WEINSTEIN, OSIRIS PAINTER at 1459 CC: [id number] DICTATION DATE: 11/07/17 1202 GENERAL NEUROLOGIST: 11/07/17 [address] [facility] [place] [address] [place] [address]
[~2017-11-06 05:20] MED LIST changes: -DILAUDID4 MG PO
[2017-11-06 06:16] VITALS: BP 135/83; BMI 37.1
[2017-11-06 11:55] VITALS: BP 120/73
[2017-11-06 12:21] VITALS: BP 120/73; Ht 162.6 cm; Wt 98.2 kg
[2017-11-06 21:02] VITALS: BP 149/77
[2017-11-07 04:50] VITALS: BP 187/97
[2017-11-07 06:07] LABS: HEMATOCRIT 32.8 % (36.0-48.0); HEMOGLOBIN 10.7 g/dL (12-16); MCH 27.6 pg (26.0-34.0); MCHC 32.6 g/dL (31.0-37.0); MCV 84.8 fL (80.0-100.0); MEAN PLATELET VOLUME 9.7 fL (7.4-10.4); RBC 3.87 10x6/uL (4.00-5.40); RDW 13.7 % (11.5-14.5); WBC 10.8 10x3/uL (4.8-10.8)
[2017-11-07 09:21] VITALS: BP 141/78
[2017-11-07 12:38] VITALS: BP 123/78
[2017-11-07 17:30] VITALS: BP 171/86
[2017-11-07 21:36] VITALS: BP 154/79
[2017-11-08 06:55] LABS: HEMATOCRIT 32.1 % (36.0-48.0); HEMOGLOBIN 10.4 g/dL (12-16); MCH 27.9 pg (26.0-34.0); MCHC 32.4 g/dL (31.0-37.0); MCV 86.1 fL (80.0-100.0); MEAN PLATELET VOLUME 9.9 fL (7.4-10.4); RBC 3.73 10x6/uL (4.00-5.40); RDW 14.1 % (11.5-14.5)
[2017-11-08] MEDS ORDERED: DILAUDID4 MG PO (08:01)
[2017-11-08 08:40] VITALS: BP 139/74
[2017-11-08 12:19] VITALS: BP 127/70
== END 2017-11-08 13:59 | disposition home or self-care (01) | DRG 483 ==
LOC: D.SDCHOLD 05:20 → D.MS 05:20 → D.SDCHOLD 07:30 → D.MS 11:38
PROVIDERS: Anesthesiology; Orthopaedic Surgery
PROC: 0RPK08Z Removal of Spacer from Left Shoulder Joint, Open Approach (ICD-10-PCS; 2017-11-06)
PROC: 0RRK00Z Replacement of Left Shoulder Joint with Reverse Ball and Socket Synthetic Substitute, Open Approach (ICD-10-PCS; principal; 2017-11-06 07:30)
DX: Z47.31 Aftercare following explantation of shoulder joint prosthesis (principal); E03.9 Hypothyroidism, unspecified; K21.9 Gastro-esophageal reflux disease without esophagitis; K76.0 Fatty (change of) liver, not elsewhere classified

== ENCOUNTER → 2017-11-13 14:19 | Outpatient (CLI) | payer OTHER ==
[2017-11-06 12:21] VITALS: BMI 37.1
[~2017-11-13 14:19] MED LIST changes: +DILAUDID4 MG PO
[2017-11-13 19:55] LABS: BASOPHILS 0.3 % (0-2); EOSINOPHILS 4.3 % (0-7); HEMATOCRIT 28.6 % (36.0-48.0); IMMATURE GRANULOCYTES 0.3 % (0-5); LYMPHOCYTES 24.9 % (15-50); MCH 27.2 pg (26.0-34.0); MCHC 31.5 g/dL (31.0-37.0); MCV 86.4 fL (80.0-100.0); MONOCYTES 8.8 % (2-11); NEUTROPHILS 61.4 % (40-80); RBC 3.31 10x6/uL (4.00-5.40); WBC 5.8 10x3/uL (4.8-10.8)
[2017-11-13 19:57] LABS: PLATELET COUNT 334 10x3/uL (130-400)
== END | disposition home or self-care (01) ==
LOC: D.LABREF 14:19
PROVIDERS: Orthopaedic Surgery
DX: Z96.612 Presence of left artificial shoulder joint (principal); D50.9 Iron deficiency anemia, unspecified

== ENCOUNTER 2018-03-13 08:00 | Outpatient (CLI) | payer OTHER ==
[2017-11-06 12:21] VITALS: BMI 37.1
== END 2018-03-13 09:00 | disposition home or self-care (01) ==
LOC: D.MAMMO 08:00
DX: Z12.31 Encounter for screening mammogram for malignant neoplasm of breast (principal)

== ENCOUNTER 2018-04-12 08:00 | Inpatient (IN) | payer OTHER ==
[~2018-04-12] VITALS: Ht 162.6 cm; Wt 96.8 kg
[~2018-04-12 08:00] MED LIST changes: +ESTRACE 0.5 MG0.5 MG PO; +GEODON20 MG PO; +SOMA350 MG PO
[2018-04-12] MEDS ORDERED: TRILEPTAL300 MG PO (08:43)
[2018-04-12 08:47] VITALS: BP 128/75; BMI 37.3
--- NOTE | 2018-04-12 09:00 | NUR ---
SNOW REMOVAL/PLOWING COMPLETE. PT LYING IN BED. NO SIGNS OF DISTRESS. CL IN REACH.
[2018-04-12 10:48] LABS: BASOPHILS 0.3 % (0-2); EOSINOPHILS 0.7 % (0-7); HEMATOCRIT 36.6 % (36.0-48.0); HEMOGLOBIN 12.6 g/dL (12-16); IMMATURE GRANULOCYTES 0.3 % (0-5); LYMPHOCYTES 40.4 % (15-50); MCHC 34.4 g/dL (31.0-37.0); MCV 87.1 fL (80.0-100.0); MEAN PLATELET VOLUME 9.7 fL (7.4-10.4); MONOCYTES 5.3 % (2-11); WBC 6.8 10x3/uL (4.8-10.8)
[2018-04-12 11:01] LABS: CALC OSMOLALITY 282 mosm/kg (275-300); CALCIUM 8.8 mg/dL (8.5-10.1); CARBON DIOXIDE 27.9 mmol/L (21.0-32.0); CHLORIDE - SERUM 104 mmol/L (98-107); CREATININE - SERUM 0.8 mg/dL (0.6-1.3); GLUCOSE 119 mg/dL (74-106); POTASSIUM - SERUM 3.9 mmol/L (3.5-5.1); SODIUM 141 mmol/L (136-145); UREA NITROGEN 15 mg/dL (7-18); eGFR NON AFRICAN AMERICAN 78 mL/min (90-120)
[2018-04-12 11:03] LABS: PLATELET COUNT 234 10x3/uL (130-400)
[2018-04-12 13:46] VITALS: BP 114/50
[2018-04-12 17:49] VITALS: Ht 162.6 cm; Wt 96.8 kg
[2018-04-12 20:20] VITALS: BP 121/50
[2018-04-12 23:37] VITALS: BP 114/64
[2018-04-13 04:06] LABS: HEMATOCRIT 32.9 % (36.0-48.0); HEMOGLOBIN 11.1 g/dL (12-16); MCHC 33.7 g/dL (31.0-37.0); MCV 88.9 fL (80.0-100.0); MEAN PLATELET VOLUME 9.7 fL (7.4-10.4); RBC 3.7 10x6/uL (4.00-5.40); RDW 13.2 % (11.5-14.5)
[2018-04-13 04:13] LABS: WBC 9.5 10x3/uL (4.8-10.8)
[2018-04-13 05:53] VITALS: BP 152/67
[2018-04-13 07:24] VITALS: BP 126/73
--- NOTE | 2018-04-13 08:00 | NUR ---
ASSESSMENT PER FLOW SHEET. PT IS WITHOUT DISTRESS.CALL LIGHT IN REACH
[2018-04-13] MEDS ORDERED: OXYCODONE-APAP1 TAB PO (08:57)
--- NOTE | 2018-04-13 10:50 | NUR ---
IV DCD WITH CATH TIP INTACT. DISCHARGE INSTRUCTIONS,STATES UNDERSTANDING.WAITING ON WHEELCHAIR
--- NOTE | 2018-04-20 14:30 | OP ---
PATIENT NAME: ROMAIN DOWELL MEDICAL RECORD: [id number] :58 LOCATION:D.[facility] ADMISSION DATE:04/12/18 SURGEON: OSIRIS PEREZ MD DATE OF OPERATION: 04/12/2018 PREOPERATIVE DIAGNOSIS: Dislocated unstable reverse total shoulder arthroplasty of the left shoulder. POSTOPERATIVE DIAGNOSIS: Dislocated unstable reverse total shoulder arthroplasty of the left shoulder. PROCEDURE: Revision of reverse total shoulder arthroplasty. SURGEON: Osiris Perez MD ANIMAL ECOLOGIST: Kalin Harkins APN INTRAOPERATIVE COMPLICATIONS: None. SUMMARY OF PATHOLOGIC FINDINGS: The patient was indeed found to have a dislocated shoulder with [id number] articulation causing intra-articular metalosis, all of which was removed. Initially, the replant trials were noted to be reducible; however, after careful inspection, the patient had a posterior bony process of the posterior lateral aspect of the left proximal humerus, likely causing impingement and difficulty with reduction. After this was removed, the shoulder was revised, reduced and reduced nicely. Please note, the closure was done by Kalin Harkins as well as meticulous intraoperative help. OPERATIVE SUMMARY IN DETAIL: After obtaining the appropriate preoperative orthopedic surgery consent as well as anesthetic consultation, evaluation and clearance, the patient was brought to the operating room and placed on the operating table in supine position. After general laryngeal mask airway was administered, the patient was placed in beach chair position. All pressure points were padded. She was held firmly to the operating table using the vacuum pack suction system. Left upper extremity were then prepped and draped in routine sterile fashion. The arm was held in Trimano arm holding device. Incision was utilized with the prior incision. Careful dissection down to the deltopectoral interval was made, overlaps the scar tissue. The cephalic vein was not encountered, either scarred down or was out of field. Substantial deltoid mobilization was then followed by identification of the anteriorly dislocated reverse component. The reverse component was delivered into the incision space. Polyethylene liner was removed and then in the attempts to disengage the Shah taper of the proximal metaphyseal component, the entire prosthetic 6.5 reverse came out. Fortunately, the entire cement mantle came out en bloc as well with little degree of difficulty. Having completed this, the glenosphere was removed using the easy glenosphere removal device. The metaglene was left in place. Copious dissection was carried out about the metaglene. The metaglene was checked for stability. There were no impinging elements inferior, posteriorly and anteriorly. The reverse was retrialed using a more constrained liner. It was quite frankly nearly nonreducible. These were all removed and then after careful exploration, it does appear that a large portion of her posterior greater tuberosity had healed in an inferior medial position from her index fracture/operation. Having removed this with maintenance of the teres minor and infraspinatus attachment, another trial reduction was undertaken with the appropriate spacer and it was very stable. OPERATIVE REPORT [id number] ROMAIN DOWELL Good range of motion in all planes without any liftoff. Therefore, a 6.5-mm Tornier stem was articulated with the 36-mm metaphyseal component +6. Trials were undertaken with the 3, the 6 and the 9. The 6 was the most appropriate for excellent tension and good overall stabilization. The +6 captured polyethylene component to the reverse, it was snapped into place. Shoulder was reduced, taken through range of motion. It was very stable on the field and could only be redislocated using the Tornier shoe horn (papa smurf) tool. After reduction was made, the shoulder was taken through multiple range of motion. Residual subscapularis was reapproximated in transosseous fashion through the lesser tuberosity and then final closure was achieved by Kalin Harkins APN, including the deltopectoral interval with #1 Vicryl, 2-0 Vicryl in this final skin stages, finally skin antonino. She was placed in a Breg shoulder immobilizer, awakened and taken to recovery room in stable condition. All final needle and sponge counts were correct. TRANSINT:[id number] Voice Confirmation ID: [id number] DOCUMENT ID: [id number] ANA WEINSTEIN, OSIRIS PAINTER at 1430 CC: [id number] DICTATION DATE: 04/20/18 1124 WOOD ROOM SUPERVISOR: 04/20/18 1318 DIS IN 04/13/18 [facility] [address] [place] [address]
== END 2018-04-13 10:53 | disposition home or self-care (01) | DRG 483 ==
LOC: D.MS 08:00 → D.SDCHOLD 08:00 → D.MS 13:30 → D.SDCHOLD 14:30 → D.MS 04-13 10:53
PROVIDERS: Anesthesiology; ADMIT Orthopaedic Surgery
PROC: 0RPK0JZ Removal of Synthetic Substitute from Left Shoulder Joint, Open Approach (ICD-10-PCS; 2018-04-12)
PROC: 0RRK00Z Replacement of Left Shoulder Joint with Reverse Ball and Socket Synthetic Substitute, Open Approach (ICD-10-PCS; principal; 2018-04-12 10:00)
DX: T84.028A Dislocation of other internal joint prosthesis, initial encounter (principal); Y83.8 Other surgical procedures as the cause of abnormal reaction of the patient, or of later complication, without mention of misadventure at the time of the procedure; E03.9 Hypothyroidism, unspecified

== ENCOUNTER → 2018-04-20 14:58 | Outpatient (CLI) | payer OTHER ==
[2018-04-12 17:49] VITALS: BMI 36.6
[~2018-04-20 14:58] MED LIST changes: +OXYCODONE-APAP1 TAB PO
[2018-04-20 15:29] LABS: BASOPHILS 0.5 % (0-2); EOSINOPHILS 2.5 % (0-7); HEMATOCRIT 31.7 % (36.0-48.0); HEMOGLOBIN 10.4 g/dL (12-16); IMMATURE GRANULOCYTES 0.5 % (0-5); LYMPHOCYTES 22.3 % (15-50); MCH 30.1 pg (26.0-34.0); MCHC 32.8 g/dL (31.0-37.0); MCV 91.6 fL (80.0-100.0); MEAN PLATELET VOLUME 9.4 fL (7.4-10.4); MONOCYTES 6.9 % (2-11); NEUTROPHILS 67.3 % (40-80); RBC 3.46 10x6/uL (4.00-5.40); RDW 13.3 % (11.5-14.5); WBC 6.4 10x3/uL (4.8-10.8)
[2018-04-20 15:31] LABS: PLATELET COUNT 288 10x3/uL (130-400)
[2018-04-20 15:48] LABS: ALBUMIN 3.2 g/dL (3.4-5.0); ALKALINE PHOSPHATASE 333 U/L (46-116); ALT (SGPT) 128 U/L (10-68); BILIRUBIN - TOTAL 0.27 mg/dL (0.2-1.3); CALC OSMOLALITY 275 mosm/kg (275-300); CALCIUM 8.5 mg/dL (8.5-10.1); CARBON DIOXIDE 32.7 mmol/L (21.0-32.0); CHLORIDE - SERUM 99 mmol/L (98-107); CREATININE - SERUM 0.8 mg/dL (0.6-1.3); GLUCOSE 104 mg/dL (74-106); POTASSIUM - SERUM 4.2 mmol/L (3.5-5.1); PROTEIN - SERUM 6.7 g/dL (6.4-8.2); SODIUM 138 mmol/L (136-145); UREA NITROGEN 13 mg/dL (7-18); eGFR NON AFRICAN AMERICAN 78 mL/min (90-120)
== END | disposition home or self-care (01) ==
LOC: D.LABREF 14:58
PROVIDERS: Clinical Nurse Specialist Family Health
DX: M25.512 Pain in left shoulder (principal)

== ENCOUNTER → 2018-04-26 16:37 | Outpatient (CLI) | payer OTHER ==
[2018-04-12 17:49] VITALS: BMI 36.6
== END | disposition home or self-care (01) ==
LOC: D.CT 16:37
DX: S43.005A Unspecified dislocation of left shoulder joint, initial encounter (principal); X58.XXXA Exposure to other specified factors, initial encounter

== ENCOUNTER 2018-05-18 11:16 | Inpatient (IN) | payer OTHER ==
[~2018-05-18] VITALS: Ht 162.6 cm; Wt 98.2 kg
[2018-05-24 14:25] LABS: BASOPHILS 0.4 % (0-2); EOSINOPHILS 2.2 % (0-7); HEMATOCRIT 40.5 % (36.0-48.0); HEMOGLOBIN 13.7 g/dL (12-16); IMMATURE GRANULOCYTES 0.3 % (0-5); LYMPHOCYTES 26.9 % (15-50); MCHC 33.8 g/dL (31.0-37.0); MCV 88.6 fL (80.0-100.0); MEAN PLATELET VOLUME 9.8 fL (7.4-10.4); MONOCYTES 7.1 % (2-11); NEUTROPHILS 63.1 % (40-80); PLATELET COUNT 269 10x3/uL (130-400); RBC 4.57 10x6/uL (4.00-5.40); RDW 11.9 % (11.5-14.5); WBC 7.4 10x3/uL (4.8-10.8)
[2018-05-24 14:41] LABS: INR 0.98 (0.85-1.17); PROTIME 12.5 SECONDS (11.6-15.0)
[2018-05-24 14:42] LABS: APTT 34.5 SECONDS (22.8-39.4)
[2018-05-24 14:46] LABS: APPEARANCE CLEAR (CLEAR); BACTERIA NONE SEEN /hpf (NONE SEEN); BILIRUBIN NEGATIVE (NEGATIVE); COLOR YELLOW (YELLOW); EPITHELIAL CELLS RARE /hpf (0-5); GLUCOSE NEGATIVE (NEGATIVE); KETONE NEGATIVE (NEGATIVE); NITRITE NEGATIVE (NEGATIVE); PROTEIN 1+ mg/dL (NEGATIVE); RED CELLS - URINE RARE /hpf (0-5); UROBILINOGEN NORMAL (NORMAL); WHITE CELLS - URINE RARE /hpf (0-5)
[2018-05-24 14:48] LABS: CALC OSMOLALITY 282 mosm/kg (275-300); CALCIUM 8.6 mg/dL (8.5-10.1); CARBON DIOXIDE 28.3 mmol/L (21.0-32.0); CHLORIDE - SERUM 102 mmol/L (98-107); CREATININE - SERUM 0.8 mg/dL (0.6-1.3); GLUCOSE 134 mg/dL (74-106); POTASSIUM - SERUM 3.6 mmol/L (3.5-5.1); SODIUM 141 mmol/L (136-145); UREA NITROGEN 12 mg/dL (7-18); eGFR NON AFRICAN AMERICAN 78 mL/min (90-120)
[2018-05-25] VITALS (11 sets, daily range): BP systolic 121–169; BP diastolic 44–98; Ht 162.6 cm; Wt 98.2 kg
--- NOTE | 2018-05-25 12:17 | NUR ---
PLASMA BLADE SET 6/8 BOVIE PAD RIGHT THIGH [id number] EXP 12/19/2019
--- NOTE | 2018-05-25 14:49 | NUR ---
PATIENT RESTING COMFORTABLE ,VITAL SIGNS STABLE WILL TRANSPORT TO ROOM
--- NOTE | 2018-05-25 15:09 | NUR ---
reiceved pt from OR, awake and alert oriented x4. on room air. iv in right hand patent infusing fluids, sling to left shoulder, scd's on and in operation, denies any current needs or discomforts, bed lowered and locked, call light within reach. cpoc
--- NOTE | 2018-05-25 15:43 | NUR ---
AUTOMOTIVE DESIGN DRAFTER PUMP INITATED AND VERIFIED BY AB TIERNEY. DENIES ANY CURRENT PAIN, INSTRUCTED ON HOW TO USE AUTOMOTIVE DESIGN DRAFTER, VERBALIZES UNDERSTANDING, DENIES ANY CURRENT NEEDS OR DISCOMFORTS, BED LOWERED AND LOCKED, CALL LIGHT WITHIN REACH. FAMILY MEMBER PRESENT IN ROOM. CPOC
--- NOTE | 2018-05-25 19:11 | NUR ---
SITTING UP RIGHT IN BED, ON ROOM AIR, EVEN UNLABORED BREATHING, IV IN RIGHT HAND, PATENT INFUSING FLUIDS, DILAUID GRAPHICS MANAGER .. DENIES ANY CURRENT NEEDS. ASSISTED TO RESTROOM, WALKED FINE, STEADY GAIT, LEFT SHOULDER IMMOBILIZER IN PLACE, SCD'S ON, BED LOWERED AND LOCKED, CALL LIGHT WITHIN REACH. CPOC
--- NOTE | 2018-05-25 19:15 | NUR ---
RECEIVED CARE FROM DAY NURSE. SITTING UP IN BED. REPORTS NO NEEDS AT THIS TIME. LEFT DAISY IN ABDUCTOR SLING. ICE TO SHOULDER. CALL LIGHT AT SIDE. IV INFUSING PER ORDER TO RIGHT HAND.
--- NOTE | 2018-05-25 20:00 | NUR ---
UP AMBULATING IN HALLS
[2018-05-26 00:46] VITALS: BP 147/81
--- NOTE | 2018-05-26 01:43 | NUR ---
I have reviewed this patient and I concur with the Shift Assessment completed by the Licensed Practical Nurse today this shift.
[2018-05-26 07:11] LABS: MCH 29.3 pg (26.0-34.0); MCHC 33.3 g/dL (31.0-37.0); MCV 87.8 fL (80.0-100.0); RDW 11.9 % (11.5-14.5); WBC 7.9 10x3/uL (4.8-10.8)
[2018-05-26 07:17] LABS: HEMATOCRIT 28.8 % (36.0-48.0); HEMOGLOBIN 9.6 g/dL (12-16); RBC 3.28 10x6/uL (4.00-5.40)
--- NOTE | 2018-05-26 07:51 | NUR ---
awake and alert, oriented x4, immobilzer to left shoulder present, dressing to left shoulder saturated with blood, removed old dressing, cleaned site, incision site has no purulent drainage, source of bleeding 4 stich from bottom, replaced dressing with abd pad and secrured with tape, time and date noted, on room air, iv infusing fluids with dilaudid process manager pump a 0.2/12/28 to right hand, denies any current needs, bed lowered and locked, call light within reach. cpoc
[2018-05-26 08:08] VITALS: BP 157/67
[2018-05-26] MEDS ORDERED: PERCOCET 10-321 EAC1 PO (10:26)
[2018-05-26] MEDS ORDERED: KEFLEX500 MG PO (10:26)
--- NOTE | 2018-05-26 11:20 | NUR ---
REASSESSED DRESSING TO LEFT SHOULDER, REMAINS CLEAN DRY AND INTACT, IMMOBILIZER TILL IN PLACE, ON ROOM AIR, IV IN RIGHT HAND, PATENT, DENIES ANY CURRENT NEEDS OR DISCOMFORTS, BED LOWERED AND LOCKED, CALL LIGHT WITHIN REACH. CPOC
--- NOTE | 2018-05-26 12:22 | NUR ---
DISCHARGE INSTRUCTIONS GIVEN, VERBALLY AND HANDOUTS, VERBALIZES UNDERSTANDING. ACCEPTED HARD SCRIPTS, DENIES ANY CURRENT QUESTIONS OR CONCERNS, DRESSING TO LEFT SHOULDER STILL CLEAN/DRY AND INTACT. ESCORTED OFF UNIT VIA WHEELCHAIR.
--- NOTE | 2018-05-29 10:02 | MORECARE ---
CASE MANAGEMENT DISCHARGE SUMMARY PATIENT: ROMAIN DOWELL UNIT: [id number] ADM DATE: 05/25/18 AGE: 57 : 58 SEX: F ROOM/BED: D.[facility]9 AUTHOR: ALICIA ESCALANTE PHYSICIAN: REFERRING PHYSICIAN: OSIRIS PEREZ MD DATE OF SERVICE: 05/29/18 Discharge Plan Patient Name: ROMAIN DOWELL Facility: [facility]:[place] : 1960 Planned Disposition: Anticipated Discharge Date: Discharge Date: 05/26/2018 Expected LOS: 0 Initial Reviewer: [email or web address] Initial Review Date: 05/29/2018 Generated: 05/29/18 11:02 am Patient Name: ROMAIN DOWELL Page [id number] at 1002 All edits/amendments must be made on the electronic document DICTATION DATE: 05/29/18 1002 DATA MIGRATION CONSULTANT: DM 05/29/18 1002 RPT#: [id number] DC DATE:05/26/18 STATUS: DIS IN [facility] [address] [facility] [place] [address] END OF REPORT
== END 2018-05-26 12:24 | disposition home or self-care (01) | DRG 483 ==
LOC: D.MS 05-25 09:00 → D.SDCHOLD 05-25 09:00 → D.MS 05-25 14:19
PROVIDERS: ADMIT Orthopaedic Surgery; ATTEND Orthopaedic Surgery
PROC: 0RPK0JZ Removal of Synthetic Substitute from Left Shoulder Joint, Open Approach (ICD-10-PCS; 2018-05-25)
PROC: 0RRK0J6 Replacement of Left Shoulder Joint with Synthetic Substitute, Humeral Surface, Open Approach (ICD-10-PCS; principal; 2018-05-25 11:00)
DX: S43.005A Unspecified dislocation of left shoulder joint, initial encounter (principal); M25.512 Pain in left shoulder

== ENCOUNTER → 2018-05-31 14:16 | Outpatient (CLI) | payer OTHER ==
[2018-05-25 15:40] VITALS: BMI 37.1
[~2018-05-31 14:16] MED LIST changes: +KEFLEX500 MG PO; +PERCOCET 10-321 EAC1 PO
[2018-05-31 15:32] LABS: BASOPHILS 0.3 % (0-2); EOSINOPHILS 4.2 % (0-7); HEMATOCRIT 30.6 % (36.0-48.0); HEMOGLOBIN 10.2 g/dL (12-16); IMMATURE GRANULOCYTES 0.3 % (0-5); LYMPHOCYTES 21.7 % (15-50); MCH 29.7 pg (26.0-34.0); MCHC 33.3 g/dL (31.0-37.0); MCV 89.2 fL (80.0-100.0); MEAN PLATELET VOLUME 10.1 fL (7.4-10.4); MONOCYTES 8.3 % (2-11); NEUTROPHILS 65.2 % (40-80); RBC 3.43 10x6/uL (4.00-5.40); RDW 12.3 % (11.5-14.5); WBC 6.4 10x3/uL (4.8-10.8)
[2018-05-31 15:37] LABS: PLATELET COUNT 272 10x3/uL (130-400)
== END | disposition home or self-care (01) ==
LOC: D.LABREF 14:16
PROVIDERS: ATTEND Orthopaedic Surgery
DX: M25.512 Pain in left shoulder (principal); D50.9 Iron deficiency anemia, unspecified

== ENCOUNTER → 2018-06-27 15:51 | Outpatient (CLI) | payer OTHER ==
[2018-05-25 15:40] VITALS: BMI 37.1
[2018-06-27 16:34] LABS: BASOPHILS 0.5 % (0-2); HEMATOCRIT 36.9 % (36.0-48.0); IMMATURE GRANULOCYTES 0.2 % (0-5); MCH 28.8 pg (26.0-34.0); MCHC 32.5 g/dL (31.0-37.0); MCV 88.5 fL (80.0-100.0); MEAN PLATELET VOLUME 10.3 fL (7.4-10.4); MONOCYTES 9.1 % (2-11); NEUTROPHILS 62.2 % (40-80); PLATELET COUNT 315 10x3/uL (130-400); RBC 4.17 10x6/uL (4.00-5.40); RDW 12.2 % (11.5-14.5)
[2018-06-27 17:54] LABS: ERYTHROCYTE SEDIMENTATION RATE 14 mm/hr (0-30)
== END | disposition home or self-care (01) ==
LOC: D.LABREF 15:51
PROVIDERS: ATTEND Orthopaedic Surgery
DX: M25.512 Pain in left shoulder (principal)

== ENCOUNTER → 2019-01-11 09:54 | Outpatient (CLI) | payer MEDICARE, OTHER ==
[2018-05-25 15:40] VITALS: BMI 37.1
== END | disposition home or self-care (01) ==
LOC: D.RAD 09:54
PROVIDERS: ATTEND Clinical Nurse Specialist Family Health
DX: M25.512 Pain in left shoulder (principal)

== ENCOUNTER 2019-04-12 09:00 | Outpatient (CLI) | payer MEDICARE, OTHER ==
[2018-05-25 15:40] VITALS: BMI 37.1
== END 2019-04-12 10:00 | disposition home or self-care (01) ==
LOC: D.MAMMO 09:00
PROVIDERS: ATTEND Internal Medicine
DX: Z12.31 Encounter for screening mammogram for malignant neoplasm of breast (principal)